=== PATIENT | male | born 1955 | race Caucasian/White ===

== ENCOUNTER 2016-08-26 09:13 | Outpatient (CLI) ==
[2015-12-30 08:40] VITALS: BMI 28.3
--- NOTE | 2016-08-26 09:38 | DI ---
EXAM: Chest two view, frontal and lateral views. HISTORY: Cough. Smoking history. COMPARISON: 02/28/2015. FINDINGS: The heart size is normal. Atherosclerotic calcifications present. There is no pulmonary vascular congestion. The lungs are clear. No pleural effusion or pneumothorax is seen. No acute osseous abnormality identified. IMPRESSION: No acute cardiopulmonary process.
== END 2016-08-26 09:14 | disposition home or self-care (01) ==
LOC: RAD 09:13
PROVIDERS: ATTEND Internal Medicine
DX: J41.0 Simple chronic bronchitis (principal)

== ENCOUNTER 2018-02-01 09:53 | Outpatient (CLI) ==
[2015-12-30 08:40] VITALS: BMI 28.3
--- NOTE | 2018-02-01 10:27 | DI ---
EXAM: Two views of the chest. History: Chronic obstructive pulmonary disease, short of breath Comparison: Chest radiograph 08/26/2016, chest CT 02/28/2015 Findings: Heart size is within normal limits. No focal consolidation. No appreciable pleural fluid and no pneumothorax. There is hyperinflation with increase in retrosternal clear space. No acute o sseous abnormalities. Atherosclerotic vascular calcifications of the aortic knob and probable coronar y calcifications. Impression: 1. No acute cardiopulmonary process. 2. Chronic obstructive pulmonary disease. 3. Suspect coronary artery disease
== END 2018-02-01 09:54 ==
LOC: RAD 09:53
PROVIDERS: ATTEND Internal Medicine
DX: R06.02 Shortness of breath (principal); J44.9 Chronic obstructive pulmonary disease, unspecified